=== PATIENT | male | born 1935 | race Caucasian/White ===

== ENCOUNTER 2017-08-13 17:47 | Observation (INO) | payer OTHER, MEDICARE ==
[2017-08-13] MEDS ORDERED: IOHEXOL 350 MG/ML 10 ML VIAL (for RAD DIAG) IVCONTRAST ONE (17:48)
[2017-08-13] MEDS ORDERED: DIPHTH/TETANUS/ACEL PERTUSSIS (BOOSTER) 0.5 ML VIAL/PFS IM ONE (18:04)
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
[2017-08-13 18:20] VITALS: O2SAT 99
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
[2017-08-13 18:25] LABS: AUTOMATED NEUTROPHIL # 1.8 TH/MM3 (1.8-7.7); BASOPHIL % 0.6 % (0.0-2.0); EOSINOPHIL # 0.1 TH/MM3 (0-0.4); EOSINOPHIL % 1.6 % (0.0-4.0); HEMATOCRIT 33.1 % (39.0-51.0); HEMOGLOBIN 11.7 GM/DL (13.0-17.0); LYMPH % 48.8 % (9.0-44.0); MEAN CELL VOLUME 91.9 FL (80.0-100.0); MEAN CORPUSCULAR HEMOGLOBIN 32.6 PG (27.0-34.0); MEAN CORPUSCULAR HGB CONC 35.5 % (32.0-36.0); MEAN PLATELET VOLUME 6.4 FL (7.0-11.0); MONOCYTE # 0.2 TH/MM3 (0-0.9); PLATELET COUNT 158 TH/MM3 (150-450); RED CELL DISTRIBUTION WIDTH 13.1 % (11.6-17.2); WHITE BLOOD COUNT 4.1 TH/MM3 (4.0-11.0)
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
[2017-08-13 18:44] LABS: INTERNATIONAL NORMALIZED RATIO 1.1 RATIO; PROTHROMBIN TIME - PATIENT 10.9 SEC (9.8-11.6)
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
[2017-08-13 19:09] VITALS: BP 161/74; PULSE 79; RESP 16; O2SAT 100
[2017-08-13 19:11] VITALS: O2SAT 100
[2017-08-13] MEDS ORDERED: SODIUM CHLORIDE 0.9% FLUSH 10 ML FLUSH IV FLUSH PRN (19:15)
[2017-08-13] MEDS ORDERED: NALOXONE HCL 0.4 MG/ML AMP IV PUSH PRN (19:15)
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
[2017-08-13] MEDS: SODIUM CHLORIDE 0.9% FLUSH 10 ML FLUSH IV FLUSH SCH (21:00)
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
[2017-08-13 22:33] LABS: ALBUMIN 3.6 GM/DL (3.4-5.0); ALT (GPT) 20 U/L (12-78); AST (GOT) 24 U/L (15-37); BICARBONATE 21.8 MEQ/L (21.0-32.0); BLOOD UREA NITROGEN 20 MG/DL (7-18); CALCIUM 8.6 MG/DL (8.5-10.1); CHLORIDE 111 MEQ/L (98-107); CREATININE 0.89 MG/DL (0.60-1.30); GLOMERULAR FILTRATION RATE 81 ML/MIN (>89); GLUCOSE,RANDOM 90 MG/DL (74-106); SODIUM (NA) 143 MEQ/L (136-145)
[2017-08-13 22:38] LABS: ALKALINE PHOSPHATASE 47 U/L (45-117); TOTAL BILIRUBIN ADULT 0.7 MG/DL (0.2-1.0); TOTAL PROTEIN 5.6 GM/DL (6.4-8.2); TROPONIN I LESS THAN 0.02 NG/ML (0.02-0.05)
[2017-08-13 23:00] VITALS: BP 152/64; PULSE 74; RESP 18; TEMP 98.3; O2SAT 98
[2017-08-14 03:00] VITALS: BP 148/66; PULSE 64; RESP 16; TEMP 98.1; O2SAT 98
[2017-08-14 08:00] VITALS: BP 145/68; PULSE 80; RESP 20; TEMP 96.7; O2SAT 100
[2017-08-14] MEDS ORDERED: TAMS0.4C4 (09:12)
[2017-08-14] MEDS ORDERED: DONE10TA7 PO (09:14)
[2017-08-14] MEDS ORDERED: SIMV40TA PO (09:15)
[2017-08-14 09:29] LABS: AUTOMATED NEUTROPHIL # 2.6 TH/MM3 (1.8-7.7); BASOPHIL % 0.7 % (0.0-2.0); EOSINOPHIL % 0.6 % (0.0-4.0); HEMATOCRIT 39.6 % (39.0-51.0); HEMOGLOBIN 13.5 GM/DL (13.0-17.0); LYMPH % 35.1 % (9.0-44.0); LYMPHOCYTE # 1.6 TH/MM3 (1.0-4.8); MEAN CELL VOLUME 92.1 FL (80.0-100.0); MEAN CORPUSCULAR HEMOGLOBIN 31.5 PG (27.0-34.0); MEAN CORPUSCULAR HGB CONC 34.2 % (32.0-36.0); MEAN PLATELET VOLUME 6.8 FL (7.0-11.0); MONO % 4.5 % (0.0-8.0); MONOCYTE # 0.2 TH/MM3 (0-0.9); NEUT % 59.1 % (16.0-70.0); PLATELET COUNT 199 TH/MM3 (150-450); RED CELL DISTRIBUTION WIDTH 12.9 % (11.6-17.2); WHITE BLOOD COUNT 4.4 TH/MM3 (4.0-11.0)
[2017-08-14 10:01] LABS: BICARBONATE 25.2 MEQ/L (21.0-32.0); CALCIUM 9.4 MG/DL (8.5-10.1); CREATININE 0.81 MG/DL (0.60-1.30)
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
[2017-08-14] MEDS ORDERED: DONEPEZIL HCL 5 MG TAB PO ONE (11:15)
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
[2017-08-14] MEDS ORDERED: traMADol HCL 50 MG TAB PO ONE (11:45)
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
[2017-08-14] MEDS: SODIUM CHLORIDE 0.9% FLUSH 10 ML FLUSH IV FLUSH SCH (11:51)
[2017-08-14] MEDS ORDERED: TRAM50 PO (11:52)
[2017-08-14] MEDS ORDERED: TAMSULOSIN HCL 0.4 MG CAP PO SCH (21:00)
[2017-08-14] MEDS ORDERED: DONEPEZIL HCL 5 MG TAB PO SCH (21:00)
[2017-08-14] MEDS ORDERED: PRAVASTATIN SOD 80 MG TAB PO SCH (21:00)
== END 2017-08-14 13:06 | disposition home or self-care (01) ==
LOC: NEPI 17:47 → NEDA 19:14 → EDBD 19:14 → NEPGCP 20:06
PROVIDERS: ADMIT Hospitalist; ATTEND Hospitalist
DX: S06.0X9A Concussion with loss of consciousness of unspecified duration, initial encounter (principal); M75.122 Complete rotator cuff tear or rupture of left shoulder, not specified as traumatic; V89.2XXA Person injured in unspecified motor-vehicle accident, traffic, initial encounter; Y92.410 Unspecified street and highway as the place of occurrence of the external cause; Z95.0 Presence of cardiac pacemaker
CPT/HCPCS: 70450; 71045; 71260; 72125; 72129; 72132; 72170; 73020; 74177; 80048; 80053; 80307; 82140; 82550; 82552; 84484; 85025; 85610; 85730; 86850; 86900; 86901; 90471; 90715; 99291; G0378; Q9967; G0390